=== PATIENT | male | born 1945 | race Caucasian/White ===

== ENCOUNTER 2016-04-04 01:32 | Inpatient (IN) | payer MEDICARE ==
[~2016-04-04] VITALS: Ht 170.2 cm; Wt 92.3 kg
[2016-04-04] VITALS (28 sets, daily range): BP systolic 99–138; BP diastolic 44–71; PULSE 73–88; RESP 13–25; O2SAT 89–98
[~2016-04-04 01:32] MED LIST: AMLODIPINE PO; CARV25TA PO; DOXA2TAB PO; LISI-567 PO; LORA1TAB PO; NIAC500T7 PO; PRA20 PO; RISP2TAB3 PO; TRAZ-118 PO; ZOLP10TA5 PO; vitamin d PO
[2016-04-04] MEDS ORDERED: Lactated Ringer's 1,000 ML IV ONE ×4 (05:00→16:45)
[2016-04-04] MEDS ORDERED: Acetaminophen IV 1,000 mg IV ONE (06:00)
[2016-04-04] MEDS ORDERED: CeFAZolin 2 Gm/50 mL D5W IV Premix IV ONE (06:00)
--- NOTE | 2016-04-04 06:30 | NUR ---
ADMISSION NOTE MALE PT ADMITTED FOR EMBOLIZATION, PRE SURGERY. DISCUSSED PLAN OF CARE WITH PT. SEE ADMIT AND FLOW SHEET
[2016-04-04 07:22] LABS: INR 1.03 ratio
[2016-04-04 07:26] LABS: BASOPHILS % (AUTO) 0.1 % (0-3); EOSINOPHILS % (AUTO) 0 % (0-5); MONOCYTES % (AUTO) 7.3 % (4-12); Mean Corpuscular Hemoglobin 26.7 pg (27.0-35.0); Mean Corpuscular Volume 82.4 fL (81-100); NEUTROPHILS % (AUTO) 79.7 % (40-74); Platelet Count 252 bil/L (150-400)
[2016-04-04] MEDS ORDERED: ZOLP10TA5 PO (07:34)
[2016-04-04] MEDS ORDERED: CALC600T12 PO (07:35)
[2016-04-04] MEDS ORDERED: BUSP15TA3 PO (07:37)
[2016-04-04] MEDS ORDERED: RES30 PO (07:37)
[2016-04-04] MEDS ORDERED: TAMS0.4C98 PO (07:37)
[2016-04-04] MEDS ORDERED: 0.9% Sodium Chloride 1,000 ML ONE (07:57)
[2016-04-04] MEDS ORDERED: CeFAZolin 2 Gm/50 mL D5W Duplex Bag IV ONE ×2 (08:10→14:21)
[2016-04-04] MEDS ORDERED: Heparin 5,000 Units/500 mL NS Premix IV ONE ×2 (08:30→09:06)
[2016-04-04] MEDS ORDERED: fentaNYL-PF 50 mCg/mL 2 mL Inj ONE ×3 (08:48→19:47)
[2016-04-04] MEDS ORDERED: HYDROmorphone PCA 0.2 mg/mL 30 mL Inj - Standard IV PRN (09:00)
[2016-04-04] MEDS ORDERED: Heparin 1,000 Unit/mL 10 mL Inj ONE (09:03)
[2016-04-04] MEDS ORDERED: Ketorolac 30 mg/mL 2 mL Inj ONE (09:21)
[2016-04-04] MEDS ORDERED: Protamine Sulfate 10 mg/mL 5 mL Inj ONE (09:44)
--- NOTE | 2016-04-04 09:50 | NUR ---
POST PROCEDURE NOTE RETURNED FROM COUNT TEAM CLERK. SEE FLOW SHEET
--- NOTE | 2016-04-04 11:02 | DRSVH ---
PROCEDURE: 1. Selective right renal arteriography. 2. Embolization of right renal artery. 3. Conscious sedation x68 minutes. 4. Right groin closure device. INDICATIONS: Large right renal mass prenephrectomy embolization. TECHNIQUE: Informed, written consent from the patient was obtained prior to the procedure. Patient wa s brought to the angiography suite, and conscious sedation was administered intravenously by group home staff, while continuous cardiorespiratory monitoring was performed. Maximal sterile barrier t echnique, hand hygiene, skin preparation, and sterile ultrasound technique (if ultrasound was utilize d) was followed. A mask, sterile gown, sterile gloves, a large sterile sheet, hand hygiene, and 2% ch lorhexidine or iodine was utilized for skin antisepsis. The bilateral groins were prepped and draped sterilely, and the skin and subcutaneous tissues overlying the right common femoral artery were infus ed with lidocaine. The right common femoral artery was accessed retrograde with a micropuncture set. A 6 Barbadian sheath was advanced. A 6 Barbadian guide catheter was used to engage the right renal artery, and was injected for selective right renal arteriography. A 3 Barbadian Progreat catheter was advanced t hrough the guide catheter into the distal aspect of the right main renal artery, and embolization wit h Bandar was performed, until cessation of flow within the right renal artery was observed by hand inje ction digital subtraction angiography via the guide catheter. The catheter was then removed, and the right groin was closed with a Perclose device. FLUOROSCOPY TIME: 15 minutes FINDINGS: There is distortion of the right renal vascular architecture secondary to the known right renal mass. At the conclusion of the procedure, there is a cast of Bandar material within the right lydia al artery and its branches, and no further flow within the right renal artery. IMPRESSION: Successful right renal artery embolization as described above. Dictated by: Ming Wood M.D. on 04/04/2016 at 10:56 Approved by: Ming Wood M.D. on 04/04/2016 at 11:00
--- NOTE | 2016-04-04 12:10 | NUR ---
TRANSFER NOTE TRANSFERED TO OR, REPORT GIVEN
[2016-04-04] MEDS ORDERED: Bupivacaine Liposome 1.3% 20 mL Inj ONE (14:47)
[2016-04-04] MEDS ORDERED: Lactated Ringer's 500 ML IV PRN (15:53)
[2016-04-04] MEDS ORDERED: Lactated Ringer's 1,000 ML IV SCH (15:53)
--- NOTE | 2016-04-04 15:53 | PCM.HPANE ---
Patient Data Surgeon Admitting Provider: Attending Provider:Gwyn Narayan MD Primary Care Physician:Ijeoma Clarke MD Other Provider:Deborah Dickens Anesthesia Reason for Visit Right Renal Mass, Cholelithiasis RIGHT RENAL MASS, CHOLELITHIASIS Ht/WT & BMI Height (Feet): 5 Height (Inches): 7.00 Weight (Kilograms): 90.000 Body Mass Index 31.14 Allergies Coded Allergies: No Known Allergies (Verified , 04/04/16) Past Anesthesia History Anesthesia History: Positive for:: Difficult Intubation (Last anesthetic Gr III view w/ Mil 3 blade), Denies:: Anesthesia Reactions Diabetes History Hx Diabetes?: No MRSA MRSA: No Medications Hypertension Medication: Yes Home Meds Incl Beta Clemente: Yes Date Beta Clemente Taken: Apr 04, 2016 Time Beta Clemente Taken: 05:30 Reported Medications Temazepam 30 Mg Cap30 Mg PO HS PRN For Insomnia 30 Days Ref 0 04/04/16 Buspirone 15 Mg Eondgk20 Mg PO BID Ref 0 04/04/16 Tamsulosin (Flomax)0.4 Mg Capsule0.4 Mg PO DAILY Ref 0 04/04/16 Calcium Carbonate (Calcium)600 Mg [id number] Mg PO BID 04/04/16 Zolpidem 10 Mg Qlalpm47 Mg PO HS PRN For Insomnia Ref 0 04/04/16 [vitamin d] No Conflict Check1,000 Iu PO DAILY 12/10/13 Pravastatin (Pravachol)20 Mg Tab20 Mg PO HS 30 Days Ref 0 12/09/13 Lisinopril 20 Mg Kcxrib83 Mg PO BID 30 Days Ref 0 12/09/13 Carvedilol (Coreg)25 Mg Qrgnpa30 Mg PO BID 30 Days Ref 0 12/09/13 [Amlodipine] No Conflict Check10 Mg PO DAILY 12/09/13 Discontinued Reported Medications Zolpidem 10 Mg Avydql09 Mg PO HS PRN For Insomnia 30 Days Ref 0 12/09/13 Risperidone 2 Mg Tablet2 Mg PO DAILY 30 Days Ref 0 12/09/13 Doxazosin Mesylate 2 Mg Tablet2 Mg PO HS #30 TABLET Ref 0 12/09/13 History History of ENT Problems?: Yes HEENT History: Positive for:: Cataracts (bilateral) Difficult Intubation (Last anesthetic Gr III view w/ Mil 3 blade) Denies:: Dysphagia Glaucoma Hearing Problem Sinus Problem TMJ Denture Type: Partial- Upper Other HEENT Pertinent History: implant post in place, has flipper for Hx of Heart Problems?: Yes Cardiovascular History: Positive for:: Cardiac Surgery (heart cath) Congestive Heart Failure Edema Heart Murmur Hypertension Irregular Heartbeat Valvular Heart Disease (echo 2016 ef 55%) Denies:: Chest Pain Peripheral Vascular Hx of Respiratory Problem?: No Respiratory History: Positive for:: Dyspnea Denies:: Asthma COPD Chest Surgery Emphysema Oxygen Administration Pneumonia Tuberculosis Use of C-PAP Machine (pt declined sleep study- claustrophobic/PTSD) Hx Neurologic Problems?: No Neurological History: Denies:: CVA Headaches Multiple Sclerosis Parkinson's Disease Seizures TIA Hx of GI Problems?: No Gastrointestinal History: Positive for:: Gall Bladder Disease (current admission problem) Denies:: Gastroesphageal Reflux Gastrointestinal Bleeding Heartburn Hepatitis Hiatal Hernia Rectal Bleeding Hx of Problems?: Yes Genitourinary History: Denies:: Kidney Stones Other Pertinent History: right renal mass current admission problem Male Hx: Positive for:: Prostate Problems (BPH) Skin History: Denies:: History Skin Disorders? 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 Denies:: Blood Transfuse Reaction Blood Transfusions Hx Diabetes: No Hx Alcohol Use: NoHx Substance Use: Yes (marijuana now and then) Smoking Status: Former Smoker Have You Smoked inLast 12 mo: No Stop/Bang S-Snoring: Do You Snore Loudly: No T-Tired: feel tired, fatigued: No O-Obsered: Observed not breath: No P-Blood Pressure: treated: Yes B- Body Mass Index > 35 kg/m2: No A- Age over 50: Yes N- Neck Large Circumference: No G- Gender Male: Yes JOSE Total Score: 3 JOSE Risk Assessment: High Risk, =/>3 Yes JOSE Category 1: Yes JOSE Category 2: Yes Risk Assessment Category Category 1A: Patient has history of documented sleep apnea, and HAS NOT received any narcotic, sedative or anesthesia administration during this stay. Category 1B: Patient has history of documented sleep apnea, and HAS received any narcotic , sedative or anesthesia administration during this stay Category 2: Patient has SUSPECTED Obstructive Sleep Apnea, and HAS received any narcotic , sedative or anesthesia administration during this stay. Category 3: Patient has SUSPECTED Obstructive Sleep Apnea and HAS NOT received narcotic, sedative or anesthesia administration during this stay. Category 4: Outpatient in Procedural Areas with known sleep apnea or who screen positive for High Risk via the STOP/BANG questionnaire. Exam Exam Vital Signs Vital Signs Date Time Temp Pulse Resp B/P Pulse Ox O2 Delivery O2 Flow Rate FiO2 04/04/16 06:30 37.3 83 13 116/62 95 Room Air General Appearance: Alert, Oriented X3, Cooperative HEENT/AIRWAY: MP 3 Lungs: Clear to Auscultation Heart: Exam Unremarkable Meds/Labs/Diagnostics Admission Meds Current Medications Sodium Chloride (Normal Saline) 1,000 ml @ ud STK-MED ONCE .ROUTE Last administered on 04/04/16 08:23; Start 04/04/16 at 07:57; Stop 04/04/16 at 07:59 ; Status DC Cefazolin Sodium/ Dextrose (Ancef Inj) 2 gm STK-MED ONCE IV Last administered on 04/04/16 08:23; Start 04/04/16 at 08:10; Stop 04/04/16 at 08:11; Status DC Labs Test 04/04/16 07:00 White Blood Count 14.1th/mm3 (3.8-10.1) Red Blood Count 4.38mil/mm3 (4.40-5.80) Hemoglobin 11.7g/dL (13.8-17.2) Hematocrit 36.1% (41.0-50.0) Mean Corpuscular Volume 82.4fL (81-100) Mean Corpuscular Hemoglobin 26.7pg (27.0-35.0) Mean Corpuscular Hemoglobin Concent 32.4% (32.0-37.0) Red Cell Distribution Width 13.2% (12.3-15.4) Platelet Count 252bil/L (150-400) Neutrophils (%) (Auto) 79.7% (40-74) Lymphocytes (%) (Auto) 12.5% (14-46) Monocytes (%) (Auto) 7.3% (4-12) Eosinophils (%) (Auto) 0% (0-5) Basophils (%) (Auto) 0.1% (0-3) Prothrombin Time 11.0sec (8.1-12.5) Prothromb Time International Ratio 1.03ratio Sodium Level 138mEq/L (134-144) Potassium Level 4.3mEq/L (3.5-5.2) Chloride Level 102mEq/L (97-108) Carbon Dioxide Level 21mmol/L (18-29) Blood Urea Nitrogen 25mg/dL (8-27) Creatinine 0.97mg/dL (0.76-1.27) Estimat Glomerular Filtration Rate 81mL/min (>59) Glucose Level 123mg/dL (60-99) Calcium Level 9.6mg/dL (8.5-10.1) Plan Impression Patient chart reviewed, patient interviewed and anesthestic plan with risks, benefits, and alternatives discussed, and informed consent obtained. NPO Status: midnight 12/09/13 ASA Physical Status: ASA3 Severe Disease Anesthetic Support Modalities: Arterial Line Anesthetic Plan: Epidural Bene/Risks/Altern/Consents: Yes Josr Nowak DO Apr 04, 2016 10:01
[2016-04-04] MEDS ORDERED: Ondansetron 2 mg/mL 2 mL Inj IVPUSH PRN (15:55)
[2016-04-04] MEDS ORDERED: Phenylephrine 10,000 mCg/mL Inj IVPUSH PRN (15:55)
[2016-04-04] MEDS ORDERED: fentaNYL-PF 50 mCg/mL 2 mL Inj IVPUSH PRN (15:55)
[2016-04-04] MEDS ORDERED: Labetalol 5 mg/mL 4 mL Inj IV PRN (15:55)
[2016-04-04] MEDS ORDERED: Dexamethasone 4 mg/mL Inj IVPUSH PRN (15:55)
[2016-04-04] MEDS ORDERED: EPHEDrine Sulfate 50 mg/mL Inj IVPUSH PRN (15:55)
[2016-04-04] MEDS ORDERED: HYDROmorphone 1 mg/mL Inj IVPUSH PRN ×2 (15:55→18:05)
[2016-04-04] MEDS ORDERED: hydrALAZINE 20 mg/mL Inj IVPUSH PRN (15:55)
[2016-04-04] MEDS ORDERED: MetoCLOpramide 5 mg/mL 2 mL Inj IVPUSH PRN ×2 (15:55→18:05)
[2016-04-04] MEDS ORDERED: Acetaminophen IV 1,000 MG in IV Premix 1 EACH IV PRN (18:05)
[2016-04-04] MEDS ORDERED: Polyethylene Glycol (PEG) 17 Gm Powder PO PRN (18:05)
[2016-04-04 19:01] LABS: APPEARANCE,URINE CLEAR (CLEAR,HAZY); COLOR,URINE YELLOW (YELLOW); OCCULT BLOOD,URINE NEGATIVE (NEGATIVE); UROBILINOGEN,URINE NORMAL (NORMAL)
[2016-04-04] MEDS ORDERED: 0.9% Sodium Chloride 1,000 ML IV PRN (19:58)
[2016-04-04] MEDS ORDERED: 0.9% Sodium Chloride 250 ML IV PRN (19:58)
[2016-04-04] MEDS: Lactated Ringer's 1,000 ML IV SCH (20:15)
[2016-04-05] VITALS (9 sets, daily range): BP systolic 131–145; BP diastolic 64–71; PULSE 77–92; RESP 16–22; O2SAT 94–98
[2016-04-05 04:28] LABS: Mean Corpuscular Hemoglobin 26.7 pg (27.0-35.0); Mean Corpuscular Volume 83.1 fL (81-100)
[2016-04-05] MEDS ORDERED: HYDROmorphone PCA 0.2 mg/mL 30 mL Inj - Standard IV PRN (04:40)
[2016-04-05] MEDS: Lactated Ringer's 1,000 ML IV SCH ×3 (04:55→21:37)
--- NOTE | 2016-04-05 06:15 | NUR ---
Transfer to floor/Pain Pt transferred to [facility] RM 2030 @ 1950 from PACU with all belongings and in a bed. Pt had Morejon cath in place and STOCKROOM HELPER and receiving RN looked at incision dressing together. Pt reported pain at about 2-3/10. Pt restarted on PAPER SALES MANAGER Dilaudid and educated on how to use button. Pt needing some re education at times regarding PAPER SALES MANAGER. Pt stating pain at a tolerable level and "was surprised pain wasn't as bad, although I can really feel it when I move or cough." Reminded pt to use pillow around abdomen when coughing to help protect the new incision. VSS and Tele SR 80's.
--- NOTE | 2016-04-05 08:09 | PCM.ANEP2 ---
Post Anesthesia Evaluation ASA/CMS Post Anesthesia VS in Patient's Normal Range?: Yes Resp Stable; Airway Patent?: Yes CV Function & Hydration Stable: Yes Mental Status Recovered?: Yes Pain control Satisfactory?: Yes N/V Control Satisfactory?: Yes Josr Nowak DO Apr 05, 2016 08:09
--- NOTE | 2016-04-05 08:09 | PCM.ANEP1 ---
Post Anesthesia Phase 1 PACU Phase 1 Assessment Vital Signs Vital Signs Date Time Temp Pulse Resp B/P Pulse Ox O2 Delivery O2 Flow Rate FiO2 04/05/16 04:44 36.6 88 18 132/64 95 Nasal Cannula 1.00 04/05/16 04:00 22 96 Level of Alertness: Awake, talking TOLEDO's with Equal Strength: Yes Pain: Yes Pain Scale Score: 2 Nausea or Vomiting: No Oxygen Delivery: Simple Mask Lungs: Clear to Auscultation Josr Nowak DO Apr 05, 2016 08:09
[2016-04-05] MEDS ORDERED: EPHEDrine/NS 5 mg/mL 5 mL Syringe ONE (08:58)
[2016-04-05] MEDS ORDERED: Lidocaine PF 1% 30 mL Inj ONE (08:58)
[2016-04-05] MEDS ORDERED: Propofol 10,000 mCg/mL 20 mL Inj ONE (08:58)
[2016-04-05] MEDS ORDERED: Phenylephrine/NS 100 mCg/mL 10 mL Syringe IVPUSH ONE (08:58)
[2016-04-05] MEDS ORDERED: Ondansetron 2 mg/mL 2 mL Inj ONE (08:58)
[2016-04-05] MEDS ORDERED: Glycopyrrolate 0.2 mg/mL 5 mL Inj ONE (08:58)
[2016-04-05] MEDS ORDERED: Rocuronium 10 mg/mL 5 mL Inj ONE (08:58)
[2016-04-05] MEDS ORDERED: Dexamethasone 4 mg/mL Inj ONE (08:58)
[2016-04-05] MEDS ORDERED: LORazepam 1 mg Tablet PO PRN (09:15)
[2016-04-05] MEDS: risperiDONE 2 mg Tablet PO SCH (09:15)
--- NOTE | 2016-04-05 17:34 | NUR ---
UOP/Intake/Pain Pt with 1500cc clear yellow UOP via Morejon today. Minimal PO intake despite encouragement, pt states he has no appetite. Transitioned off MOSQUITO SPRAYER, 10mg PO dilaudid effective. Pt reports abd incision pain only with movement. IS education done by RT, use encouraged. SCDs in place. 1 PA to chair, walked in room no walker, gait steady.
[2016-04-06] VITALS (8 sets, daily range): BP systolic 120–154; BP diastolic 72–87; PULSE 86–109; RESP 17–22; O2SAT 93–96
[2016-04-06] MEDS: Lactated Ringer's 1,000 ML IV SCH ×3 (03:54→15:57)
--- NOTE | 2016-04-06 06:08 | NUR ---
Pain/ Pt describes pain as an 3 while laying still, but an 8 with movement. Pt requesting pain meds regularly, administered 10mg Oxycodone x 2 and 0.5mg Dilaudid x 1. pt stated,"I feel better, but the same" with each reassessment. Pt up to chair and tolerated well. Pt stated," It was easier to get up." Morejon urine output of 1700ml. VSS and tele: SR HR 80's.
[2016-04-06] MEDS: risperiDONE 2 mg Tablet PO SCH (08:30)
--- NOTE | 2016-04-06 10:42 | NUR ---
Social Work Note: Initial Assessment Data& Assessment: EMR reviewed. SW met with pt and pt friend at bedside to discuss discharge planning, SW role explained. Jeet Thomas is a 70 year old male admitted on 04/04/2016 for right renal mass and cholelithiasis. Pt has Medicare and VA insurance coverage. Per pt, pt is 100% service connected. Pt sees Ian Clarke MD for primary care. Pt lives in [place], alone in a one story home. Pt is independent with all ADL's at baseline and only occasionally uses a cane. Pt drives. Pt denies HH or SNF hx. Pt denies LTC insurance. Pt friend plans to transport him home when medically ready and help pt with any chores and grocery shopping after discharge while pt recovers. Pt provided with DPOA paperwork to review and complete when possible. Pt denies any needs at this time. SW to continue to follow if any needs arise. Plan: Anticipated discharge home via POV when medically ready. Pt denies any needs at this time. SW to continue to follow if any needs arise. RODRÍGUEZ Degroot Addendum: 04/06/16 at 1045 by ALEX LARRY Amended: Links added.
--- NOTE | 2016-04-06 11:08 | PROG NOTE ---
[address] [address] PROGRESS NOTE PATIENT: FEMI ASHBY : 1945 MR#: [id number] ADMIT: 04/04/2016 JOB ID: [id number] DATE: 04/06/2016 PROGRESS NOTE: Postoperative day number two, status post open right radical nephrectomy and open right cholecystectomy. SUBJECTIVE: He continues to have impressively stable and improving clinical status. He ambulated about the room yesterday, sat up in chair much of the day. Pain level has been low, easily controlled with PARACHUTE PANEL JOINER. He has not passed much flatus and has not had a bowel movement. In the interval, he has been seen by nutrition, and recommendations and some written literature was provided to him. OBJECTIVE: Afebrile. Pulse 82, blood pressure 143/87, respiration 18. The 8-hour intake 1836, 8-hour output 1700 cc. EXAMINATION: He sitting upright and comfortable in bed. He demonstrated his use of the incentive spirometer and is able to the easily attained 3 L. I recommended he try and hold his inspiration volumes for full 1-2 seconds. Chest is clear and equal bilaterally. Heart rate is regular. Abdomen is scaphoid, soft. Again, his right upper quadrant dressing is intact. Bowel sounds are present but decreased. Morejon remained indwelling. Extremities: No edema, pallor, clubbing, or cyanosis, and pneumatic compression devices are intact and functioning. DATABASE: Hemoglobin 11.6, hematocrit 36.1, creatinine 1.30, BUN 18. Estimated GFR 58. Total protein 6.1 (low). Albumin 3.1 (low). IMPRESSION: Stable postoperative day number two, status post open right radical nephrectomy and open right cholecystectomy. PLAN: 1. Continue to increase ambulation. 2. DC IV and Morejon. 3. Dulcolax suppository. 4. Follow up pathology.
--- NOTE | 2016-04-06 11:16 | PROG NOTE ---
[address] [address] PROGRESS NOTE PATIENT: FEMI ASHBY : 1945 MR#: [id number] ADMIT: 04/04/2016 JOB ID: [id number] DATE: 04/05/2016 SUBJECTIVE: Postoperative day #1, status post right radical nephrectomy and right cholecystectomy. He had a restful night. No issues. His pain is minimal with estimated pain level 1-2. OBJECTIVE: Temperature 36.6, blood pressure 132/64, heart rate 88, respirations 18. An 8-hour input 1300 cc and 8-hour output 950 cc. On examination, he is resting comfortably in bed. Incision and dressings are intact. Abdomen is soft and scaphoid. Chest equal, clear and unlabored bilaterally. Heart rate is regular. Extremities: No pallor, edema, cyanosis, or clubbing. SCD intact. Urine per Morejon catheter is clear. DATABASE: WBC 16.1, hemoglobin 10.4, hematocrit 32.4 and platelets 203,000. Potassium 4.8, BUN 24, creatinine 1.31 with an estimated GFR of 57. IMPRESSION: Stable postoperative day #1, status post open right radical nephrectomy and cholecystectomy. PLAN: 1. Increase diet and ambulation. Diet will be a renal diet. 2. Nutrition consultation. 3. substance abuse services director evaluation. 4. Reorder incentive spirometer (is in standard orders postop, patient does not have at bedside nor instruction). 5. Pathology pending.
--- NOTE | 2016-04-06 11:18 | PROG NOTE ---
[address] [address] PROGRESS NOTE PATIENT: FEMI ASHBY : 1945 MR#: [id number] ADMIT: 04/04/2016 JOB ID: [id number] DATE: 04/05/2016 SUBJECTIVE: The patient is postop day one. He is sitting in a chair. Having minimal discomfort. He is eating a clear liquid diet. Wound is intact and dry. Abdomen is soft, slightly distended. He does have some dependent edema. IMPRESSION: Status post exploratory laparotomy with removal of right renal mass in right kidney along with gallbladder. Doing extraordinarily well. PLAN: No recommendations for changes in his current progress.
--- NOTE | 2016-04-06 11:54 | OP ---
[address] [address] OPERATIVE REPORT PATIENT: FEMI ASHBY : 1945 MR#: [id number] ADMIT: 04/04/2016 JOB ID: [id number] DATE OF SURGERY: 04/04/2016 SURGEON: Vianney Emerson MD. PREOPERATIVE DIAGNOSIS(ES): 1. Right renal mass. 2. Cholelithiasis. POSTOPERATIVE DIAGNOSIS(ES): 1. Right renal mass. 2. Cholelithiasis. OPERATIVE PROCEDURE: The patient underwent chevron incision for exploratory laparotomy with removal of his right renal mass. I also came in solely to remove the gallbladder in the open procedure. FINDINGS: Large gallstone, approximately 2 cm, in the gallbladder. Otherwise, gallbladder within normal limits. DESCRIPTION OF PROCEDURE: The patient was placed in a supine position, prepped and draped in a sterile fashion. Dr. Narayan had made the incision of a subcostal of the right, extending it later into a chevron. I began the exploratory laparotomy with removal of his gallbladder using electrocautery. I was able to remove the gallbladder from the fossa bed with good hemostasis, and locking hemoclips allowed me to clip the cystic duct proximally. I used a clamp distally and then crossed the cystic duct with electrocautery. The cystic artery was incorporated into the bundle of clips and cauterized in the same fashion. Remainder of the operation will be dictated by Dr. Narayan, as well as closure.
--- NOTE | 2016-04-06 16:26 | NUR ---
Transfer to [facility] Report called to Chas Roman RN. Patient transferred in a stable condition with all personal belongings.
--- NOTE | 2016-04-06 16:35 | NUR ---
Arrived to room 1007 In wheelchair, AOx4. Stood and transferred to hospital bed independently. c/o 3/10 pain while lying at rest which is tolerable for him. Declined any additional pain medication at this time, due to constipation. BT's hypoactive, abdomen distended. Advised patient need for sputum and UA sample. Given fresh urinal for sample. Continue to monitor.
[2016-04-06 18:38] LABS: APPEARANCE,URINE SLIGHTLY CLOUDY (CLEAR,HAZY); COLOR,URINE YELLOW (YELLOW); OCCULT BLOOD,URINE LARGE (NEGATIVE); PH,URINE 7.5 (5.0-8.0); UROBILINOGEN,URINE NORMAL (NORMAL)
--- NOTE | 2016-04-06 18:46 | NUR ---
GI Administered 2nd suppository per order, no results within hour of 1st one administered today. No flatus or BM. Patient got out of bed and ambulated in hallway and in room. Belching started after ambulation.
[2016-04-06] MEDS: Sodium Chloride LOK Flush 10 mL Syringe IVFLUSH SCH (23:53)
[2016-04-07] MEDS: Lactated Ringer's 1,000 ML IV SCH ×4 (01:50→20:32)
[2016-04-07] MEDS: Ondansetron 2 mg/mL 2 mL Inj IVPUSH PRN ×3 (02:37→13:27)
[2016-04-07 05:00] VITALS: BP 153/82; PULSE 94; RESP 18; O2SAT 92
--- NOTE | 2016-04-07 06:03 | NUR ---
GI/Activity Patient up and walking around room & hallway this shift. Complaining of burping, indigestion and ABD discomfort. ABD noted to be distended with hypoactive BT. No order for Maalox/Tums, offered to call surgeon for patient. Per patient, "it's too late to call a surgeon this late for something this minor." Offered multiple times throughout shift to call & get order for something, but patient continuing to refuse, stating it can wait until morning. Patient had small BM this shift. States stomach isn't feeling as tight now as it was during the beginning of shift. Encouraging fluid intake and to go slow. Had some emesis this shift, Zofran IVP given. Encouraging patient to go slow with oral intake. States understanding.
[2016-04-07] MEDS: risperiDONE 2 mg Tablet PO SCH (10:14)
[2016-04-07] MEDS: Sodium Chloride LOK Flush 10 mL Syringe IVFLUSH SCH ×3 (10:15→23:06)
[2016-04-07] MEDS: Alum-Mag Hydrox-Simeth 30 mL Suspension PO PRN ×2 (10:37→14:37)
--- NOTE | 2016-04-07 12:18 | NUR ---
Nausea/vomiting Pt. vomiting at start of shift. 8 mg zofran administered. Pt. reports effectiveness. pt. c/o dyspepsia and burping. Meds administered around 1000, but pt. began projectile vomiting almost 700 cc 30 min later. emesis is clear and yellow/green. IV reglan and maalox administered. pt. reports relief of nausea and dyspepsia.
--- NOTE | 2016-04-07 13:39 | NUR ---
NUTRITION ASSESSMENT: ASSESS: Pt is a 70yo M admitted for rt renal mass. Pt is s/p nephrectomy. PO has been good at 50-100% on a renal diet. He has been experiencing increased n/v and abdomen distention. Pt is on SCOAP Protocol. PMHX: Renal insufficiency, umbilical hernia, HTN LABS: Reviewed. Cl 94, Bun 29, Lathe Setup Operator 1.64, Glu 135, Alb 3.1, Amylase 139 MEDS: Reviewed. Omid Benjamin GI: BMx1 04/07 SKIN: Miguelangel 20 CURRENT WTS: 90.1kg, BMI 31.5kg/m2, admit wt 90.3kg, IBW 67kg DIET: Renal, PO 50-100% EST. NEEDS: nephrectomy Kcals: 1800-1980kcal/day (20-22kcal/kg) Pro: 55-70g/day (.8-1.0g/kg IBW) NUTRITION DIAGNOSIS: 1.) Altered GI function related to nephrectomy as evidence by need for surgery d/t renal mass and post/op N/V and constipation NUTRITION INTERVENTION: 1.) Spoke w/pt 04/05 reviewing importance of low na and overall healthy diet. Please see RD: Dietary Teaching Record under Care Activity for more information regarding education. 2.) Continue IMPACT Advanced Recover on all trays MONITOR / EVAL: PO, GI, wt, labs, POC, nutrition status. Will continue to monitor per moderate nutrition risk guidelines
[2016-04-07 14:21] VITALS: BP 130/69; PULSE 76; RESP 18; O2SAT 93
[2016-04-07] MEDS: MetoCLOpramide 5 mg/mL 2 mL Inj IVPUSH SCH ×2 (16:50→23:04)
[2016-04-07 17:15] VITALS: BP 139/74; PULSE 70; RESP 20; O2SAT 90
--- NOTE | 2016-04-07 19:22 | NUR ---
BM/passing gas Pt. had small BM this afternoon and reports he is now passing gas.
[2016-04-07 19:50] VITALS: BP 122/68; PULSE 92; RESP 16; O2SAT 93
--- NOTE | 2016-04-08 01:18 | NUR ---
NAUSEA Patient reported mild nausea, requested ice chips. Tolerating Ice chips well, administered PO medications, no noted nausea. Vocalizes desire to go home frequently. Denies pain at this time.
[2016-04-08] MEDS: Lactated Ringer's 1,000 ML IV SCH ×2 (02:05→08:45)
[2016-04-08 05:37] LABS: Mean Corpuscular Hemoglobin 26.8 pg (27.0-35.0); Mean Corpuscular Volume 82.7 fL (81-100)
[2016-04-08 05:58] VITALS: BP 137/68; PULSE 84; RESP 17; O2SAT 96
[2016-04-08] MEDS: MetoCLOpramide 5 mg/mL 2 mL Inj IVPUSH SCH (08:30)
[2016-04-08] MEDS: Sodium Chloride LOK Flush 10 mL Syringe IVFLUSH SCH (08:30)
[2016-04-08] MEDS: risperiDONE 2 mg Tablet PO SCH (10:21)
--- NOTE | 2016-04-08 11:12 | DIS ---
[address] [address] DISCHARGE SUMMARY PATIENT: FEMI ASHBY : 1945 MR#: [id number] ADMIT: 04/04/2016 JOB ID: [id number] DIS: DATE: 04/08/2016 ADMITTING DIAGNOSES: 1. Large right renal mass. 2. Cholelithiasis. DISCHARGE DIAGNOSES: 1. Large right renal mass. 2. Cholelithiasis. (Pathology pending.) PROCEDURE PERFORMED IN HOSPITAL: 1. Open cholecystectomy. 2. Open right radical nephrectomy. 3. Right renal embolization. HOSPITAL SUMMARY: The patient was admitted on the morning of April 04, 2016 and underwent an otherwise uncomplicated percutaneous right renal embolization, the details of which can be found in Interventional Radiology report. Later in the same day, he then went to the operating room under general anesthetic and failed epidural and underwent open right cholecystectomy, the details of which can be found in Dr. Vianney Emerson's operative report. He also underwent open right radical nephrectomy. Again, details can be reviewed in my operative report. Overall recovery was initially unremarkable the first 36-48 hours. He was ambulating, requiring very little pain medication, and began tolerating a general diet the morning of the second postoperative day. On the morning of the second postoperative day, his abdomen was a bit distended. He had not passed any gas, and Dulcolax was ordered at that time. The order, however, was not processed apparently for some 6 hours, and it did not arrive to the 2nd floor until about 1400 hours. It was not administered until approximately 1600 hours. He did have result with passage of gas and initially several firm stool. On the morning of the 3rd postoperative day, his distention had progressed, and he actually had bilious emesis x4. His diet was held, and addition Reglan and p.r.n. use of Dulcolax suppository resulted in prompt resolution of postoperative ileus. On the morning of April 08, 2016, he was anxious for discharge. He was overall feeling well with no complaints other than anxiety and wanting to be at home. He had had no further vomiting. He was tolerating a general diet and was passing flatus and some liquid stool. Incision was clean. Percutaneous site was intact without hematoma. Pathology remained pending. Routine postoperative driving, hygiene, and activity instructions and restrictions were provided. He will being seen in my office in two weeks for wound check and review of pathology. I have requested that he schedule a followup visit with his primary care physician, Dr. Ian Clarke, in the next week or two for medication review and blood pressure check. During his hospitalization, he underwent nutritional consultation was provided verbal instruction by staff and was provided written literature. I emphasized the importance of adhering to the that as well.
--- NOTE | 2016-04-08 11:29 | NUR ---
Discharge Pt discharged to home with friend at 1125; walked off unit with all personal belongings in hand. A&Ox3, TOLEDO, IV dcd intact, Incision site CDI, No scripts given, No c/o pain, CareNotes provided on dc paperwork, No questions/concerns left unanswered at time of dc. Pt also with information from dietary re: necessary diet changes post procedure.
--- NOTE | 2016-04-08 11:40 | PATH ---
SURGICAL PATHOLOGY Attending Physician:Gwyn Narayan MD CASE STATUS: Signed Out PATIENT NAME: FEMI ASHBY PID: [id number] : 1945 DATE COLLECTED:04/04/2016 23:35 SPECIMEN: 1: Gallbladder 2: Kidney, Radical Nephrectomy for Tumor CLINICAL HISTORY: CHOLELITHIASIS, RIGHT RENAL MASS 1). GALLBLADDER 2). RIGHT KIDNEY WITH NEOPLASM FINAL DIAGNOSIS: 1. Gallbladder: Cholelithiasis with associated chronic cholecystitis. 2. Right Radical Nephrectomy Specimen: Renal cell carcinoma. 1. Tumor size: 19.5 x 18.5 x 18.5 cm. 2. 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 3. Histologic grade (Furhman): Consistent with Furhman grade 2 (such grading is of questionable value in tumors of this type). 4. Tumor necrosis: Not identified. 5. Tumor focality: Multiple foci. 6. Extent of tumor: Tumor appears confined to the kidney with distention and focal invasion of the renal capsule, but no invasion through the capsule into perinephric soft tissue. 7. Surgical margins: Widely free of tumor. 8. Lymph/vascular invasion: Not identified. 9. Renal pelvis involvement: Not identified. 10. Adrenal Gland: Unremarkable. 11. Nonneoplastic kidney: Mild arterial and arteriolar nephrosclerosis with minimal renal scarring. 12. Other: Multiple small renal cysts. 13. Pathologic stage: pT2b, pNX Case reviewed by Dr Ely Fuentes who agrees with the diagnosis. ICD10: C64.1 GROSS DESCRIPTION: The specimens are received in formalin, labeled with the patient's name, and sublabeled as the following: (1) gallbladder; (2) right kidney neoplasm. (1) The specimen consists of an intact gallbladder (length-10.5 cm, diameter-3.5 cm) with a patent cystic duct. No lymph nodes are identified. The serosa is green smooth and shiny. The lumen contains dark green viscous bile and a single dark green solid firm calculus (2.0 x 1.8 x 1.2 cm) with a gritty exterior surface and a clear colorless crystalline cut surface. The mucosa is dark green and velvety. The wall is up to 0.1 cm thick. No nodules, masses or lesions are identified. Section code: (1A) gallbladder, national account representative. (2) The specimen consists of a kidney (14.0 x 7.3 x 3.5 cm) with attached ureter (length-4.6 cm, diameter-0.4 cm), renal artery (length-1.6 cm, diameter-0.3 cm), renal vein (length-1.8 cm, diameter-0.6 cm), and perirenal adipose tissue (up to 14.0 cm thick). The adrenal gland is present (4.5 g, 4.5 x 4.2 x 0.2 cm). A goncalves-yellow thick rubbery cyst (19.5 x 18.5 x 18.5 cm) is adhered to the renal capsule. The cyst contains fragments of yellow-goncalves and goncalves-white rubbery friable tissue. The lining is goncalves-yellow smooth and shiny with multiple smooth rubbery excrescences (2.5 x 2.3 x 1.7 cm-7.0 x 6.3 x 3.3 cm) with pale pink and white cut surfaces. The cyst does not appear to extend through the capsule. This cyst is 9.8 cm from the ureteric, 6.3 cm from the arterial, and 6.5 cm from the venous resection margins. The renal parenchyma is red-brown and firm with a focal pale soft area (1.1 x 0.6 x 0.5 cm) located less than 0.1 cm from the capsule and multiple cystic cavities (0.1 cm-2.0 cm the) containing turbid colorless fluid. The remaining parenchyma, the sinus and pelvis have normal architecture. No other nodules, masses or lesions are identified. The adrenal gland is goncalves-orange and unremarkable. Section code: (2A) ureteric and vascular resection margins; (2B-2H) cyst with renal capsule, national account representative; (2I-2K) cyst with excrescences, national account representative; (2L-2O) parenchyma, national account representative; (2P) adrenal gland, national account representative. Note: Gross consultation with Dr. Savanna Marino. 04/05/16 XU MICRO DESCRIPTION: Sections from part 1 are gallbladder. There is mild chronic inflammation present, but there is no atypia or evidence for malignancy. 2. Sections are from the kidney and adrenal gland. The adrenal gland is unremarkable. The large described cystic mass in the kidney is a papillary rental cell carcinoma. In most areas the tumor is characterized by intermediate sized cells which line papillary fronds with central fibrovascular cores. The cells are arranged in a single layer with slightly irregular nuclei and indistinct to absent nucleoli. In other areas, the tumor has a tubular differentiation and in still other areas, it is solid in growth pattern. Tumor can be seen to extend into the distended renal capsule; however, does not extend through the capsule into the perirenal soft tissue. Sections from the uninvolved kidney reveal additional small microscopic foci of similar tumor. There is no evidence of involvement of the renal pelvis, and there is no evidence of vascular invasion. The excisional margins are widely free of tumor. Immunohistochemistry is performed in order to confirm the histologic impression of a papillary renal cell carcinoma. CD10:Positive in a membranous distribution. Cytokeratin 7:Positive. Vimentin:Positive. BerEP4:Positive. INTERPRETATION: This immunophenotype is consistent with papillary renal cell carcinoma thus confirming the histologic impression. ICD-9 CODES: CPT CODES: 2: 56220, 26093, 85766, 30736, 97698 Electronically Signed Out Jb Garcia MD [facility] [address], [place] [address] Technical component performed at [facility], [address], [place], [address]
--- NOTE | 2016-07-07 08:34 | OP ---
[address] [address] OPERATIVE REPORT PATIENT: FEMI ASHBY : 1945 MR#: [id number] ADMIT: 04/04/2016 JOB ID: [id number] DATE OF SURGERY: 04/06/2016 PREOPERATIVE DIAGNOSIS(ES): 1. Large right renal mass. 2. Cholelithiasis. 3. Right upper quadrant pain. POSTOPERATIVE DIAGNOSIS(ES): 1. Large right renal mass. 2. Cholelithiasis. 3. Right upper quadrant pain. OPERATION PERFORMED: Right radical nephrectomy. POSTOPERATIVE DIAGNOSIS(ES): SURGEON: Gwyn Narayan M.D. TAKE OUT WAITER: HARRIETT Torres ANESTHESIA: General plus epidural. FINDINGS: Tissue planes were reasonably intact. There was an extremely large right renal mass largely replacing the substance of the right kidney. No visibly abnormal lymph nodes or obvious evidence of invasion was seen into surrounding structures. PROCEDURE SUMMARY: The patient was positioned supine and administered general anesthesia following placement of successful epidural anesthesia. The abdomen was then prepped and draped in a sterile fashion. A right subcostal incision was made with a small extension forming a Chevron was conducted using sharp and cautery technique. Retractors were carefully positioned. Dr. Vianney Emerson proceeded with open cholecystectomy, the details of which can be found in her operative report. Next, the white line of Toldt was incised and the hepatic flexure was mobilized and reflected medially and inferiorly. The confines of Gerota fascia were then carefully from surrounding structures in a painstaking and meticulous manner using blunt and cautery technique and application of Hem-o-Sarahi clips were indicated for hemostasis and lymphostasis. The ureter was identified, was clipped proximally and distally and ligated. The renal artery was identified and was divided using a suture ligature of 2-0 silk and a free tie with 0 Ti-Cron. Additionally a plastic Hem-o-Sarahi clip was applied on the patient and specimen side. Next the renal vein was identified. This too was carefully isolated, was ligated proximally and distally with 0 Ti-Cron and a suture ligature of 2-0 silk was placed on the patient's side and additionally a large Hem-o-Sarahi clip. Hemostasis was excellent. The specimen was handed off for gross and microscopic examination. The operative bed was inspected once again. It was found to be clear of clot or any active bleeding. The hepatic flexure was then repositioned anatomically. The abdominal wall was then closed in two layers using 0 PDS in a running fashion. The subcutaneous layer was closed with a running 2-0 Vicryl. Finally, the skin was reapproximated using a running subcuticular of 4-0 Monocryl. A strip of Telfa was applied over the incision line and the entire incision was then covered with OpSite. The patient was then awakened, transferred to a gurney, and transported to recovery in stable condition.
== END 2016-04-08 11:29 | disposition home or self-care (01) | DRG 658 ==
LOC: SAS 01:32 → PCC 19:46 → OSC 04-06 15:58
PROVIDERS: ADMIT Specialist; ATTEND Specialist
PROC: 04L93DZ Occlusion of Right Renal Artery with Intraluminal Device, Percutaneous Approach (ICD-10-PCS; 2016-04-04)
PROC: 0TT00ZZ Resection of Right Kidney, Open Approach (ICD-10-PCS; principal; 2016-04-04 11:45)
PROC: 0FT40ZZ Resection of Gallbladder, Open Approach (ICD-10-PCS; 2016-04-04 11:45)
DX: C64.1 Malignant neoplasm of right kidney, except renal pelvis (principal); K80.20 Calculus of gallbladder without cholecystitis without obstruction; I10 Essential (primary) hypertension; I50.9 Heart failure, unspecified